=== PATIENT | female | born 1990 | race Caucasian/White ===

== ENCOUNTER 2020-12-05 22:21 | Emergency (ER) | payer OTHER ==
[~2020-12-05] VITALS: Ht 172.7 cm; Wt 97.5 kg
== END 2020-12-05 23:40 | disposition home or self-care (01) ==
LOC: ED 22:21
DX: S09.90XA Unspecified injury of head, initial encounter (principal); V49.40XA Driver injured in collision with unspecified motor vehicles in traffic accident, initial encounter; Y92.411 Interstate highway as the place of occurrence of the external cause
CPT/HCPCS: 99283

== ENCOUNTER 2021-05-14 05:45 | Day surgery (SDC) | payer OTHER ==
[~2021-05-14] VITALS: Ht 172.7 cm; Wt 101.3 kg
--- NOTE | ~2021-05-14 | OR ---
[facility] [address] [place], [place] [address] Draft DATE OF OPERATION: 05/14/2021 SURGEON: Jackson Person MD Patient of Dr. Person. PREOPERATIVE DIAGNOSES: Pelvic pain, right ovarian cyst and abnormal uterine bleeding. POSTOPERATIVE DIAGNOSES: Endometriosis of pelvic peritoneum, simple right ovarian cyst x2, pelvic pain and abnormal uterine bleeding. PROCEDURES: Laparoscopic excision of endometriosis, drainage of two right ovarian cysts and hysteroscopy with D and C. ACCOUNTING OFFICE MANAGER: Calista Moctezuma DO ANESTHESIA: General. ESTIMATED BLOOD LOSS: 20 mL. SPECIMEN: Endometrial sampling and endometriosis implant. DRAINS: None. PACKING: None. FINDINGS: Normal vagina with no blood. Normal appearing cervix. The uterus was normal in size and shape. The endometrial cavity was normal in size and shape. Both ostia appeared normal. There was slightly thickened but otherwise normal endometrium throughout in smooth pattern. The anterior cul-de-sac was free of any endometriosis or adhesions. PATIENT NAME: OPAL CARUSO OPERATIVE REPORT DATE OF : [birth year] REPORT #: [id number] PHYSICIAN: JACKSON PERSON MD PCP: KARLEY DOWNS PAC REPORT IS CONFIDENTIAL AND NOT TO BE RELEASED WITHOUT AUTHORIZATION [facility] [address] [place] [id number] Draft The posterior cul-de-sac had an implant of endometriosis just lateral to the right uterosacral ligament approximately 5 mm in diameter with slight scarring around the implants. Otherwise, normal posterior cul-de-sac. The left tube was normal in length and normal-appearing fimbriated end and no adhesions. Left ovary is normal in size and shape without any evidence of endometriosis or adhesions. The right fallopian tube was normal in length with normal-appearing fimbriated end and no adhesions. Right ovary had two simple cysts bulging from the ovary, one approximately 2 cm and one 4 cm. These had a thin wall showing clear fluid within and no suspicious areas. No adhesions. No endometriosis. COMPLICATIONS: None. DESCRIPTION OF PROCEDURE: The patient was brought to the operating room, placed supine position. After adequate general anesthesia was obtained, she was placed in the dorsal lithotomy position, prepped and draped in usual sterile fashion. Aguilar catheter was placed in the bladder. Weighted speculum placed in the vagina and the anterior lip of the cervix was grasped with an Allis clamp. Uterus was partially dilated and the hysteroscope set up and placed in the cervix. Sterile saline was used as distending medium. The hysteroscope entered the endometrium under direct visualization using sterile saline as distending medium. The above findings were noted. The uterine cavity appeared normal with just slightly thickened endometrium, so the MyoSure Lite was placed through the hysteroscope and the endometrium sampled in a 360-degree fashion in the upper and lower uterus and then the lower segment. The hysteroscope was then removed and the cervix observed and noted to have good hemostasis. Hulka clamp was carefully introduced through the endocervical canal, attached to the anterior lip of the cervix and the Allis clamp removed. Attention was then drawn to the abdomen. A small infraumbilical skin incision was made with a scalpel after injecting the area with 0.25% Marcaine with epinephrine. The subcutaneous tissue was dissected with Metzenbaum scissors and the fascia grasped with hemostats, elevated, nicked with Metzenbaum scissors and extended slightly in transverse fashion using Metzenbaum scissors. Finger dissection was used to open the peritoneum. Retention stitches were placed above and below the incision. An S retractor was inserted into the incision and the Temo cannula and sleeve entered the abdomen under direct visualization. Trocar was removed. The balloon filled and the outer sleeve slid down and tightened in place and the retention stitches attached to the outer sleeve to help stabilize the sleeve. The laparoscope with video attachment entered the abdomen under direct visualization. Carbon dioxide was used as distending medium. The above findings were noted on the left side just below the level of the umbilicus and approximately 10 cm lateral to the midline. The abdominal wall was transilluminated to avoid any vessels. The skin PATIENT NAME: OPAL CARUSO OPERATIVE REPORT DATE OF : [birth year] REPORT #: [id number] PHYSICIAN: JACKSON PERSON MD PCP: KARLEY DOWNS PAC REPORT IS CONFIDENTIAL AND NOT TO BE RELEASED WITHOUT AUTHORIZATION [facility] [address] [place] [id number] Draft injected with 0.5% Marcaine with epinephrine and a small skin incision made with a scalpel. A bladed 5-mm trocar and sleeve entered the abdomen under direct visualization. The trocar was removed and the balloon filled with air. Blunt grasper was inserted through the incision. Same procedure was done on the right side. The entire pelvis was carefully inspected. The above findings were noted. The right ovary was closely inspected and both cyst appeared very benign, appeared to have clear fluid and had very smooth bulging area coming out of the ovary, so it was decided that cystectomy or oophorectomy were not necessary, so laparoscopic drainage needle was inserted under direct visualization and inserted into each cyst suctioning out the fluid, which was noted to be clear. Both cysts completely collapse and had small thin wall both sides and had good hemostasis. The endometrial implant was then examined and was noted to be just lateral to the right uterosacral ligament, so laparoscopic curve Marylands were used to gently grasp the endometriosis and tent the peritoneum. The ureter was followed from the pelvic brim all the way down along the sidewall and noted to be lateral to the endometrial implant, but more difficult to see closer to the uterus and so the endometrial implant was grasped with a curved Maryland forceps and elevated and when just the peritoneum was tented. The laparoscopic scissors were used to open just the peritoneum medial to the endometriosis and blunt dissection and aqua dissection used to free the peritoneum from the surrounding tissue. Once the peritoneum was free, the laparoscopic scissors could be used to carefully cut around the endometriosis, making sure that there was only peritoneum in the scissors and this way the endometriosis was excised. The portion of peritoneum with the endometriosis was removed and sent to pathology. The biopsy site was irrigated. Laparoscopic Kitner was used to hold pressure on the site to control the small amount of bleeding. Tisseel was then sprayed into the biopsy site for further control of any oozing. The site was observed for 5 minutes and noted to have good hemostasis. The gas was allowed to escape and under low pressure the site was the examined and continued to have good hemostasis. At this point, all instruments were removed. The final gas allowed to escape and the sleeves removed. The infraumbilical incision was closed using running stitch of 0 Vicryl suture. The two retention stitches were tied together for further support. The remaining Tisseel was sprayed in the three skin incisions to help with any oozing and then the three skin incisions were closed with 4-0 Vicryl in subcuticular stitches. The patient tolerated the procedure well, went to recovery room in good condition. Aguilar catheter was removed and endometrial specimen and the endometriosis specimen were sent to Pathology for identification. Jackson Person MD PATIENT NAME: OPAL CARUSO NENA OPERATIVE REPORT DATE OF : [birth year] REPORT #: [id number] PHYSICIAN: JACKSON PERSON MD PCP: KARLEY DOWNS PAC REPORT IS CONFIDENTIAL AND NOT TO BE RELEASED WITHOUT AUTHORIZATION [facility] [address] [place] [address] Draft [facility]/RUTHIE /[id number] cc: Karley Downs PA-C Copies: ~ PATIENT NAME: OPAL CARUSO NENA OPERATIVE REPORT DATE OF : [birth year] REPORT #: [id number] PHYSICIAN: JACKSON PERSON MD PCP: KARLEY DOWNS PAC REPORT IS CONFIDENTIAL AND NOT TO BE RELEASED WITHOUT AUTHORIZATION
[~2021-05-14 05:45] MED LIST: FERROUS SULFAT325 MG
--- NOTE | 2021-05-14 08:59 | NUR ---
05/14/21 0859 [address] 0850- PT ARRIVES TO PACU REACTIVE TO STIMULI. INSTANTLY FALLS TO SLEEP WHEN NOT BEING TALKED TO. RESP EVEN AND UNLABORED. OXYGEN SAT HIGH 90'S TO 100% ON 6L VIA MASK. PT PROVIDED WARM AIR AND BLANKETS SHE IS SHIVERING. 0851- BAND AID TO PT'S LEFT LOWER QUADRANT CHANGED THE BAND AID WAS LEAKING THROUGH AND ONTO THE PT'S DOWN. DR. BARLOW NOTIFIED. 0854- SHIVERING HAS STOPPED. PT REMAINS REACTIVE TO VOICE. INSTANTLY FALLS TO SLEEP WHEN NOT BEING TALKED TO. PT NODS HER HEAD WHEN TOLD HER SURGERY IS OVER.
--- NOTE | 2021-05-14 09:30 | NUR ---
PT RETURNED TO ROOM AND AT BEDSIDE, REPORTS RECEIVED. VSS. PT REPORTS 3/10 PAIN AND TOLERABLE AT THIS TIME, PLAN OF CARE DISCUSSED. HOB INCREASED AND PT SIPPING WATER. CALL LIGHT WITHIN REACH.
[2021-05-14] MEDS ORDERED: HYDROCODON-ACE1 EA10 PO (10:07)
[2021-05-14] MEDS ORDERED: MOTRIN IB200 MG PO (10:08)
--- NOTE | 2021-05-14 10:55 | NUR ---
PT UP TO BATHROOM AND STEADY ON HER FEET, PT VOIDED AND SMALL AMOUNT OF RED DRAINAGE NOTED. PT DENIES CONCERNS. PAIN MEDICAITON GIVEN PER EMAR. VSS. DC INSTRUCTIONS GIVEN AND ALL QUESTIONS ANSWERED. AT BEDSIDE. PT EATING PUDDING AND DENIES NAUSEA.
--- NOTE | 2021-05-14 11:15 | NUR ---
PT UP TO BATHROOM AND DRESSED HERSELF, REPORT VERY LITTLE DRAINAGE ON PAD. PT REPORTS TOLERABLE PAIN AND NO DIZZINESS. VSS. DC PAPERWORK GIVEN AND ALL QUESTIONS ANSWERED. PT DC VIA WC AND PULLING CAR UP.
--- NOTE | 2021-05-15 18:57 | PATH ---
[facility] [address] [facility] [place] [address] Signed SPECIMEN(S): A UTERINE CONTENTS SPECIMEN(S): B ENDOMETRIAL IMPLANT SPECIMEN SOURCE: A. UTERINE CONTENTS B. ENDOMETRIAL IMPLANT CLINICAL HISTORY: Abnormal uterine bleeding, anemia, ovarian cyst. Laparoscopic ovarian cystectomy, possible salpingo-oophorectomy, hysteroscopy with bx. FINAL PATHOLOGIC DIAGNOSIS: A. Endometrium, biopsy: - Proliferative endometrium with focus of disordered proliferation. - Fragments with features of benign endometrial polyp(s). - Negative for hyperplasia or malignancy. B. Endometrial implant, excision: - Endometriosis. NAL:caw:C MICROSCOPIC EXAMINATION: Histologic sections of all submitted blocks are examined by light microscopy. These findings, together with the gross examination, support the pathologic diagnosis. GROSS DESCRIPTION: Two specimens are received in two containers, labeled "SL." A. The specimen, labeled "SL, A," and designated on the requisition "uterine contents," is received in formalin and consists of multiple fragments of pink to red-brown soft tissue (2.5 x 2.2 x 0.4 cm in aggregate). The specimen is submitted entirely in cassette (A1). B. The specimen, labeled "SL, B," and designated on the requisition "endometrial implant," is received in formalin and consists of one fragment of pink-sheikh tissue (0.8 cm in greatest dimension). The specimen is submitted entirely in cassette (B1). AC (under the direct supervision of a pathologist) The Gross Description was prepared using a voice recognition system. The report was reviewed for accuracy; however, sound-alike word errors, addition and/or deletions may occur. If there is any question about this report, please contact Client Services. PATIENT NAME: OPAL CARUSO PATHOLOGY DATE OF : [birth year] REPORT #: [id number] PHYSICIAN: ADIN PATHOLOGY PCP: KARLEY DOWNS PAC REPORT IS CONFIDENTIAL AND NOT TO BE RELEASED WITHOUT AUTHORIZATION [facility] [address] [place], [place] [address] Signed ADDITIONAL NOTES: Immunohistochemical and/or in situ hybridization studies were performed on this case with the appropriate positive controls that react as expected. This test was developed and its performance characteristics determined by [facility]. It has not been cleared or approved by the U.S. Food and Drug Administration. The FDA has determined that such clearance or approval is not necessary. This test is used for clinical purposes. It should not be regarded as investigational or for research. [facility] is certified under the Clinical Laboratory Improvement Amendments of 1988 (CLIA) as qualified to perform high complexity clinical laboratory testing. This assay has not been validated for specimens that have been decalcified. PERFORMING LABORATORY: The technical component was performed by [facility], [address] [place] [id number] (Gun Perforator Loader: Vikki Heath MD; CLIA# [id number]). [facility], [address] [address] (CLIA# [id number]). Diagnostician: Radha Santiago MD Pathologist Electronically Signed 05/15/2021 Copies: ~ PATIENT NAME: OPAL CARUSO PATHOLOGY DATE OF : [birth year] REPORT #: [id number] PHYSICIAN: ADIN PATHOLOGY PCP: KARLEY DOWNS PAC REPORT IS CONFIDENTIAL AND NOT TO BE RELEASED WITHOUT AUTHORIZATION
== END 2021-05-14 11:16 | disposition home or self-care (01) ==
LOC: DS 05:45
PROVIDERS: ATTEND General Practice
PROC: 0UDB8ZZ Extraction of Endometrium, Via Natural or Artificial Opening Endoscopic (ICD-10-PCS; 2021-05-14)
PROC: 0U5B4ZZ Destruction of Endometrium, Percutaneous Endoscopic Approach (ICD-10-PCS; principal; 2021-05-14 07:30)
PROC: 0U904ZZ Drainage of Right Ovary, Percutaneous Endoscopic Approach (ICD-10-PCS; 2021-05-14 07:30)
DX: N80.3 Endometriosis of pelvic peritoneum (principal); N83.291 Other ovarian cyst, right side; N84.0 Polyp of corpus uteri; D62 Acute posthemorrhagic anemia; Z87.891 Personal history of nicotine dependence
CPT/HCPCS: J0131; J0330; J1100; J1885; J2300; J2405; J2704; J7121